=== PATIENT | female | born 1960 | race Caucasian/White ===

== ENCOUNTER 2020-09-28 14:39 | Outpatient (CLI) | payer BC ==
--- NOTE | 2020-09-28 15:17 | RAD ---
XR Ribs Lt>=2 View W/PA CXR History: Contusion of left frontal chest wall Comparison: None. Findings: Lungs are clear. No pneumothorax or effusion. Cardiac silhouette and mediastinal contours a re within normal limits. No acute osseous abnormality. Impression: No acute intrathoracic abnormality. No displaced left rib fracture.
== END 2020-09-28 14:40 | disposition home or self-care (01) ==
LOC: BICRAD 14:39
PROVIDERS: ATTEND Family Medicine
DX: S20.212A Contusion of left front wall of thorax, initial encounter (principal)